=== PATIENT | female | born 1985 | race American Indian/Alaskan Native ===

== ENCOUNTER 2018-06-20 09:10 | Inpatient (IN) | payer SELFPAY ==
[2018-06-20] MEDS ORDERED: PEPCID IV NR (10:30)
[2018-06-20] MEDS ORDERED: BICITRA PO NR (10:30)
[2018-06-20 10:37] LABS: Basophils # (Auto) 0.1 K/mm3 (0.0-0.1); Eosinophils % (Auto) 0.4 % (0.0-4.3); Hematocrit 41.7 % (30.3-42.9); Hemoglobin 13.8 gm/dl (10.1-14.3); Lymphocytes # (Auto) 1.3 K/mm3 (1.2-5.4); Lymphocytes % (Auto) 19.6 % (13.4-35.0); Mean Corpuscular HGB Conc 33 % (30-34); Mean Corpuscular Volume 89 fl (79-97); Monocytes # (Auto) 0.8 K/mm3 (0.0-0.8); Monocytes % (Auto) 12.8 % (0.0-7.3); Platelet Count 244 K/mm3 (140-440); Red Cell Distribution Width 13.9 % (13.2-15.2)
[2018-06-20] MEDS ORDERED: ceFAZolin 3 GM in NACL 0.9% 100 ML IV NR (11:00)
[2018-06-20] MEDS ORDERED: REGLAN IV NR (11:00)
[2018-06-20] MEDS ORDERED: LACTATED RINGERS 1,000 ML IV SCH (11:00)
[2018-06-20] MEDS ORDERED: PITOCin/NS 20 UNIT/1000ML DRIP 20 UNITS/1,000 ML BAG IV SCH ×2 (11:00→20:00)
--- NOTE | 2018-06-20 11:35 | History and Physical Report ---
History of Present Illness Date of admission: 06/20/18 09:10 Chief complaint: scheduled section History of present illness: 33yo 39 1/7 weeks MURTAZA presents for scheduled primary section due to history of myomectomy in 2017. She reports good movement, no loss of fluid and no vaginal bleeding. She transferred to [facility] from outside of the country at 33 weeks. She had approximately 5 visits in her country including an ultasound at 19wks 5 days confirming her due date. She has received ultrasounds at [facility]. She was referred to [facility] to evaluate for placenta accreta and well being. Past History Past Medical History: no pertinent history Past Surgical History: myomectomy [employer] History: fibroids - Obstetrical History : 2 Number of Living Children: 1 Medications and Allergies Allergies Allergy/AdvReac Type Severity Reaction Status Date / Time No Known Allergies Allergy Verified 06/20/18 10:30 Home Medications Medication Instructions Recorded Confirmed Last Taken Type Pnv No.95/Ferrous Fum/Folic AC 1 each PO DAILY 06/20/18 06/20/18 06/19/18 09:00 History [Prenavite Tablet] 1 Active Meds: Active Medications Citric Acid/Sodium Citrate (Bicitra) 30 ml PO ONCE NR Stop: 06/20/18 16:00 Famotidine (Pepcid) 20 mg IV ONCE NR Stop: 06/20/18 16:00 Cefazolin Sodium 3 gm/ Sodium (Chloride) 100 mls @ 100 mls/30 min IV PREOP NR; Protocol Stop: 06/20/18 16:00 Lactated Ringer's (Lactated Ringers) 1,000 mls @ 2,250 mls/hr IV PREOP PEPPER Stop: 06/21/18 11:27 Last Admin: 06/20/18 11:07 Dose: 2,250 mls/hr Documented by: Oxytocin/Sodium Chloride (Pitocin/Ns 20 Unit/1000ml Drip) 20 units in 1,000 mls @ 0 mls/hr IV TITR PEPPER Metoclopramide HCl (Reglan) 10 mg IV ONCE NR Stop: 06/20/18 16:00 - Vital Signs Vital signs: Vital Signs Pulse BP 117 H 131/95 06/20/18 09:54 06/20/18 09:54 Temp Pulse Resp BP Pulse Ox 99.2 F 86 22 142/91 06/20/18 10:20 06/20/18 11:25 06/20/18 10:20 06/20/18 11:25 - Obstetrical FHR: category 1 Results Result Diagrams: 06/20/18 10:00 06/20/18 10:00 Abnormal lab results 06/20/18 Range/Units 10:00 [place] % (Auto) 12.8 H (0.0-7.3) % All other labs normal. Assessment and Plan - Patient Problems (1) 39 weeks gestation of Current Visit: Yes Status: Acute Plan to address problem: Admit to L&D IVF Routine labs, Type and screen Ancef 2g IV SCD Spear Catheter Risks, benefits and alternatives discussed and informed consent signed. Proceed to primary section. (2) with history of uterine myomectomy Current Visit: Yes Status: Acute
[2018-06-20 11:51] LABS: Alanine Aminotransferase 22 units/L (7-56)
[2018-06-20] MEDS ORDERED: ANCEF/STERILE WATER 2 GM/20 ML IV NR (12:00)
[2018-06-20 12:47] LABS: Bacteria,Urine 1+ /HPF (Negative); Bilirubin,Urine NEG (Negative); Blood,Urine NEG (Negative); Color,Urine Yellow (Yellow); Mucus,Urine FEW /HPF; Urobilinogen,Urine < 2.0 mg/dL (<2.0)
[2018-06-20] MEDS ORDERED: DILAUDID IV PRN ×2 (17:21)
[2018-06-20] MEDS ORDERED: ZOFRAN IV PRN (17:21)
[2018-06-20] MEDS ORDERED: NARCAN 0.4 MG/1 ML IV PRN ×2 (17:21→19:31)
[2018-06-20] MEDS ORDERED: PHENERGAN PR PRN (17:21)
[2018-06-20] MEDS ORDERED: BENADRYL IV PRN (17:21)
[2018-06-20] MEDS ORDERED: PHENERGAN PO PRN (17:21)
--- NOTE | 2018-06-20 17:21 | Anesthesia Consultation ---
Anesthesia Consult and Med Hx Date of service: 06/20/18 - Airway Anesthetic Teeth Evaluation: Good ROM Head & Neck: Adequate Mental/Hyoid Distance: Adequate Mallampati Class: Class II Intubation Access Assessment: Probably Good - Pre-Operative Health Status ASA Pre-Surgery Classification: ASA2 Proposed Anesthetic Plan: Epidural, Spinal - Pulmonary Hx Asthma: No COPD: No Hx Pneumonia: No - Cardiovascular System Hx Hypertension: No - Central Nervous System Hx Seizures: No Hx Psychiatric Problems: No - Endocrine Hx Renal Disease: No Hx End Stage Renal Disease: No Hx Hypothyroidism: No Hx Hyperthyroidism: No - Hematic Hx Anemia: No Hx Sickle Cell Disease: No - Other Systems Hx Alcohol Use: No
--- NOTE | 2018-06-20 17:21 | Anesthesia Day of Surgery ---
Anesthesia Day of Surgery - Day of Surgery Patient Examined: Yes Patient H&P Reviewed: Yes Patient is NPO: Yes
[2018-06-20] MEDS ORDERED: TORADOL IV PRN (17:22)
[2018-06-20] MEDS ORDERED: ANCEF/STERILE WATER 2 GM/20 ML IV ONE (18:00)
[2018-06-20] MEDS ORDERED: SODIUM CHLORIDE FLUSH SYRINGE 10 ML IV NR ×2 (18:00→20:00)
[2018-06-20] MEDS ORDERED: WATER FOR IRRIG STERILE IR ONE (18:17)
[2018-06-20] MEDS ORDERED: NACL 0.9% IR ONE (18:17)
[2018-06-20] MEDS ORDERED: NEO SYNEPHRINE/NS Syringe(OR USE) IV ONE (18:25)
[2018-06-20] MEDS ORDERED: ASTRAMORPH PF 10MG/10ML ONE (19:02)
--- NOTE | 2018-06-20 19:04 | Operative Report ---
Operative Report Operative Report: Date of procedure: 06/20/2018 Pre-operative diagnosis: 1. Intrauterine at 39-1/7 weeks 2. Previo us myomectomy Post-operative diagnosis: Same with extensive lower uterine segment adhesions Procedure name(s): Primary low transverse section Surgeon: Henry Sharp MD Clarifier Operator: None Anesthesia: Spinal anesthesia by Dr. Gregory EBL: 900 mls Findings: A 3136 g female 7 at 1 minute 9 at 5 minutes. Clear amniotic fluid. Multi-myomatous uterus. Unable to visualize fallopian tubes or ovaries. Extensive lower uterine segment adhesions. Procedure: After the patient was prepped and draped in usual sterile fashion, and after satisfactory level of epidural anesthesia was obtained, the skin knife was used to make a transverse skin incision through the previous skin scar. The incision was excised down to layer of the fascia, which was nicked in the midline and extended laterally using the Bovie cautery. The rectus muscles were dissected off the rectus fascia both superiorly and inferiorly. The rectus bellies in the midline, and the peritoneum was entered under direct visualization. The peritoneal incision was extended superiorly and inferiorly. There were extensive lower uterine segment adhesions are sharply taken down using both sharp and blunt dissection. A bladder flap was created and the bladder blade was then placed. The uterus was scored in a curvilinear linear fashion, entered in the midline revealing clear amniotic fluid. The infant's head was delivered onto the surgical field with the aid of a vacuum, and the oropharynx and nasopharynx were bulb suctioned. The rest of the 's body was delivered, cord was doubly clamped and cut and the was handed to the waiting respiratory team. Cord blood was then obtained. The placenta was manually removed from the uterus, but the uterus could not be removed from its normal anatomical position due to the extensive size and multiple fibroids. After gentle uterine lavage, the incision was inspected and found to be without extensions. It was then closed in 2 layers using 0 Vicryl suture in a running interlocking fashion, the second layer imbricating the first. After good hemostasis was achieved, copious amounts or irrigation was performed, and the gutters were suctioned free of blood and blood clots. Tisseel sealant was sprayed across the uterine incision and after excellent hemostasis assured, the peritoneum was re-approximated using 3-0 Vicryl suture in a running interlocking fashion, and then the rectus muscles were re-approximated using 3-0 Vicryl suture in a [id number] configuration. The fascia was then re-approximated using 0 Vicryl suture in running interlocking fashion. The subcutaneous layer was made hemostatic using Bovie cautery, the Tisseel sealant was sprayed across the fascial incision and the skin edges re-approximated using 4-0 Vicryl suture in a sub-cuticular fashion. Patient tolerated the procedure well was transported to recovery in stable condition.
[2018-06-20] MEDS ORDERED: MYLICON PO PRN (19:31)
[2018-06-20] MEDS ORDERED: TUCKS PAD TP PRN (19:31)
[2018-06-20] MEDS ORDERED: TYLENOL PO PRN (19:31)
[2018-06-20] MEDS ORDERED: SENOKOT PO PRN (19:31)
[2018-06-20] MEDS ORDERED: PERCOCET 5/325 PO PRN (19:31)
[2018-06-20] MEDS ORDERED: LANSINOH TP PRN (19:31)
[2018-06-20] MEDS ORDERED: MILK OF MAGNESIA PO PRN (19:31)
[2018-06-20] MEDS ORDERED: D5LR 1,000 ML IV SCH (20:00)
[2018-06-20] MEDS ORDERED: ANCEF/NS 1 GM/50 ML 1 GM/50 ML BAG IV SCH (20:00)
[2018-06-21] MEDS: ANCEF/NS 1 GM/50 ML 1 GM/50 ML BAG IV SCH ×2 (01:30→10:13)
[2018-06-21 08:19] LABS: Hematocrit 29.5 % (30.3-42.9)
[2018-06-21] MEDS: IBUPROFEN PO PRN (10:11)
[2018-06-21] MEDS: FEOSOL PO SCH (10:11)
[2018-06-21] MEDS: PRENATAL VITAMIN PO SCH (10:11)
--- NOTE | 2018-06-21 12:51 | Progress Note ---
Assessment and Plan A: /postop day 1 S/P primary low transverse section. Uterine fibroids; previous myomectomy. Anemia secondary to and blood loss. P: Continue iron supplementation. Encouraged ambulation. Subjective - Subjective Date of service: 06/21/18 Principal diagnosis: /postop day 1 S/P primary low transverse section Interval history: /postop day 1 S/P primary low transverse section. Doing well. Patient reports small amount of lochia. Voiding without difficulty and passing gas. Ambulating well and tolerating a regular diet. Patient denies headache, chest pain, cough, shortness of breath, leg pain, abdominal pain, heavy bleeding, or nausea/vomiting. Patient reports: appetite normal, voiding normally, pain well controlled, fla tus, ambulating normally, no dizzy ambulation, no nauseated [place]: doing well Objective - Vital Signs Latest vital signs: Vital Signs Temp Pulse Resp BP BP Pulse Ox 06/21/18 12:50 98 F 101 H 18 136/79 06/21/18 08:00 99.3 F 92 H 18 124/77 06/21/18 03:51 98.5 F 88 18 122/91 98 06/21/18 00:22 99.5 F 99 H 18 126/78 97 06/20/18 21:06 98.8 F 84 18 139/87 99 06/20/18 20:09 97.8 F 97 H 16 116/82 06/20/18 19:49 94 H 16 114/71 06/20/18 19:34 76 18 128/72 06/20/18 19:29 93 H 18 119/70 06/20/18 19:24 86 16 126/77 06/20/18 19:19 81 17 123/61 06/20/18 19:14 102 H 18 114/61 06/20/18 19:09 98.0 F 116 H 20 115/67 06/20/18 17:09 109 H 137/83 06/20/18 13:06 107 H 136/83 Intake and Output 06/20/18 06/21/18 06/21/18 23:59 07:59 15:59 Intake Total 1500 50 600 Output Total 250 1400 700 Balance 1250 -1350 -100 Intake: IV 1500 50 ANCEF/NS 1 GM/50 ML 1 gm 50 In 50 ml @ 100 mls/hr IV Q8H [facility] Rx#:[id number] Oral 600 Output: Urine 250 1400 700 Indwelling Catheter 1400 Uretheral (Spear) 100 Void 700 Other: Total, Intake Amount 240 Total, Output Amount 600 400 Voiding Method Toilet Estimated Blood Loss 900 - Exam Cardiovascular: Present: Regular rate, Normal S1, Normal S2 Lungs: Present: Clear to auscultation Abdomen: Present: normal appearance, soft, normal bowel sounds. Absent: distention, tenderness, guarding, rigidity Uterus: Present: normal, firm, fundal height below umbilicus. Absent: bogginess, tenderness Extremities: Present: normal. Absent: tenderness, edema - Labs Labs: Abnormal lab results 06/21/18 Range/Units 07:47 Hgb 10.0 L D (10.1-14.3) gm/dl Hct 29.5 L D (30.3-42.9) %
[2018-06-21] MEDS ORDERED: M-M-R II VACCINE SUB-Q ONE (19:33)
[2018-06-21] MEDS ORDERED: BOOSTRIX IM ONE (19:33)
[2018-06-22] MEDS: IBUPROFEN PO PRN ×3 (00:49→19:35)
[2018-06-22] MEDS: PRENATAL VITAMIN PO SCH (10:06)
[2018-06-22] MEDS: FEOSOL PO SCH (10:06)
--- NOTE | 2018-06-22 14:03 | Progress Note ---
Assessment and Plan A: day 2 S/P primary low transverse section. Anemia secondary to and blood loss. P: Continue iron supplementation and ambulation. Anticipate discharge tomorrow. Subjective - Subjective Date of service: 06/22/18 Principal diagnosis: /postop day 2 S/P primary low transverse section Interval history: /postop day 2 S/P primary low transverse section. Doing well. Patient reports small amount of lochia. Voiding without difficulty and passing gas. Ambulating well and tolerating a regular diet. Patient denies headache, chest pain, cough, shortness of breath, leg pain, abdominal pain, heavy bleeding, or nausea/vomiting. Patient reports: appetite normal, voiding normally, pain well controlled, flatus, ambulating normally, no dizzy ambulation, no nauseated : doing well Objective - Vital Signs Latest vital signs: Vital Signs Temp Pulse Resp BP BP Pulse Ox 06/22/18 08:40 98.3 F 91 H 20 110/65 06/22/18 06:38 18 06/22/18 05:38 18 06/22/18 01:49 18 06/22/18 00:49 18 06/22/18 00:38 99.2 F 115 H 17 122/70 99 06/21/18 15:30 98.8 F 97 H 18 106/65 Intake and Output 06/21/18 06/22/18 06/22/18 22:59 07:59 15:59 Intake Total 320 Output Total Balance 320 Intake: Oral 320 Intake, Free Water Output: Urine Void Other: Total, Intake Amount 320 Total, Output Amount # Voids Void 1 # Bowel Movements - Exam Cardiovascular: Present: Regular rate, Normal S1, Normal S2 Lungs: Present: Clear to auscultation Abdomen: Present: normal appearance, soft, normal bowel sounds. Absent: distention, tenderness, guarding, rigidity Uterus: Present: normal, fundal height below umbilicus. Absent: tenderness Extremities: Present: normal, edema (mild edema of BLE) Incision: Present: normal, dry
[2018-06-22] MEDS: NORCO 5/325 PO PRN (19:35)
[2018-06-23 09:07] LABS: Hematocrit 29.5 % (30.3-42.9); Hemoglobin 9.9 gm/dl (10.1-14.3)
[2018-06-23] MEDS: NORCO 5/325 PO PRN (10:55)
[2018-06-23] MEDS: IBUPROFEN PO PRN (10:55)
[2018-06-23] MEDS: PRENATAL VITAMIN PO SCH (10:55)
[2018-06-23] MEDS: FEOSOL PO SCH (10:55)
--- NOTE | 2018-06-23 11:43 | Progress Note ---
Assessment and Plan - Patient Problems (1) S/P primary low transverse Current Visit: Yes Status: Acute Plan to address problem: POD 3 - stable Discharge to home today Follow up at [facility] in 1 week for incision check (2) Anemia due to blood loss, acute Current Visit: Yes Status: Acute Plan to address problem: Asymptomatic Continue iron therapy Subjective - Subjective Date of service: 06/23/18 Principal diagnosis: POD #3; s/p Primary LTCS Interval history: see H&P, Operative Report, PP/[employer] Progress Notes Patient reports: appetite normal, voiding normally, pain well controlled, flatus, ambulating normally, no dizzy ambulation [place]: doing well, nursing well Objective - Vital Signs Latest vital signs: Vital Signs Temp Pulse Resp BP BP Pulse Ox 06/23/18 10:55 20 06/23/18 08:30 98.6 F 91 H 20 123/76 06/23/18 01:15 98.7 F 98 H 18 117/75 97 06/22/18 20:35 18 06/22/18 19:35 18 06/22/18 15:30 98 F 106 H 20 126/74 Intake and Output 06/22/18 06/23/18 06/23/18 23:59 07:59 15:59 Intake Total 240 600 240 Balance 240 600 240 Intake: Oral 360 240 Intake, Free Water 240 240 Other: Total, Intake Amount 360 240 # Voids Void 1 1 1 - Exam Cardiovascular: Present: Regular rate Lungs: Present: Clear to auscultation Abdomen: Present: normal appearance, soft Vulva: both: normal Uterus: Present: normal, firm, fundal height below umbilicus Extremities: Present: normal Incision: Present: normal, dry, intact, other (steri strips in place) Comments: scant lochia - Labs Labs: Abnormal lab results 06/23/18 Range/Units 08:55 Hgb 9.9 L (10.1-14.3) gm/dl Hct 29.5 L (30.3-42.9) %
--- NOTE | 2018-06-23 11:48 | Discharge Summary ---
Providers - Providers Date of Admission: 06/20/18 09:10 Date of discharge: 06/23/18 Attending physician: BRENDA MOREL Primary care physician: BRENDA MOREL Hospitalization Reason for admission: section, IUP at term Delivery: Procedure: section, primary low transverse Episiotomy: none Laceration: none Incision: normal, dry, intact, other (steri strips in place) Other procedures: none complications: none Discharge diagnosis: IUP at term delivered [place] baby: female Hospital course: Uncomplicated Condition at discharge: Stable Disposition: DC-01 TO HOME OR SELFCARE - Discharge Diagnoses (1) S/P primary low transverse Status: Acute (2) Anemia due to blood loss, acute Status: Acute Comment: Asymptomatic Continue iron therapy Plan - Discharge Medications Prescriptions: Ferrous Sulfate [Feosol 325 MG tab] 325 mg PO BID #60 tablet Ibuprofen [Motrin] 800 mg PO Q8HR PRN #30 tablet PRN Reason: Moder Pain Unrelieved By [place] HYDROcodone/APAP 5-325 [[place]oca 5/325] 1 each PO Q6HR PRN #30 tablet PRN Reason: Pain Pnv No.95/Ferrous Fum/Folic AC [Prenavite Tablet] 1 each PO DAILY #30 tablet - Provider Discharge Summary Activity: routine, no sex for 6 weeks, no heavy lifting 4 weeks, no strenuous exercise Diet: routine Instructions: routine Additional instructions: [] Smoking cessation referral if applicable(refer to patient education folder for contact #) [] Refer to [facility] Booklet Call your doctor immediately for: * Fever > 100.5 * Heavy vaginal bleeding ( >1 pad per hour) * Severe persistent headache * Shortness of breath * Reddened, hot, painful area to leg or breast * Drainage or odor from incision. * Keep incision clean and dry at all times and follow doctor's instructions regarding bathing/showering - Follow up plan Follow up: BRENDA MOREL MD [Primary Care Provider] - 7 Days (Follow up at [facility] in 1 week for incision check)
[2018-06-23 16:10] VITALS: BP 132/80
== END 2018-06-23 14:00 | disposition home or self-care (01) | DRG 787 ==
LOC: APU 09:10 → OB 22:28
PROVIDERS: ADMIT Obstetrics & Gynecology; ATTEND Obstetrics & Gynecology
PROC: 10D00Z1 Extraction of Products of Conception, Low, Open Approach (ICD-10-PCS; principal; 2018-06-20)
PROC: 0UN90ZZ Release Uterus, Open Approach (ICD-10-PCS; 2018-06-20)
PROC: 3E0234Z Introduction of Serum, Toxoid and Vaccine into Muscle, Percutaneous Approach (ICD-10-PCS; 2018-06-21)
DX: O34.29 Maternal care due to uterine scar from other previous surgery (principal); D62 Acute posthemorrhagic anemia; Z3A.39 39 weeks gestation of pregnancy; Z37.0 Single live birth; Z23 Encounter for immunization; O90.81 Anemia of the puerperium; N73.6 Female pelvic peritoneal adhesions (postinfective); O99.89 Other specified diseases and conditions complicating pregnancy, childbirth and the puerperium
CPT/HCPCS: 36415; 59025; 81001; 82565; 83615; 84450; 84460; 85014; 85018; 85025; 86592; 86850; 86900; 86901; 96360; 96361; G0378; A6250; C9250; J0690; J1885; J2274; J2370; J2590; J2765; J7120; J7121